=== PATIENT | male | born 1990 | race Caucasian/White ===

== ENCOUNTER 2017-09-25 10:09 | Emergency (ER) | payer OTHER ==
[~2017-09-25] VITALS: Ht 182.9 cm; Wt 68.2 kg
[2017-09-25] MEDS ORDERED: NEURONTIN300 MG/CAP (10:22)
[2017-09-25] MEDS ORDERED: TYLENOL WITH CO1 TA1 PO (10:23)
[2017-09-25] MEDS ORDERED: GOOD NEIGHBOR150 MG PO (10:23)
[2017-09-25] MEDS ORDERED: LIBRIUM 25M25 MG/CAP PO ×2 (10:23→10:24)
[2017-09-25] MEDS ORDERED: THIAMINE HCL100 M1 PO (10:23)
[2017-09-25 11:47] VITALS: BP 106/63
== END 2017-09-25 11:39 | disposition home or self-care (01) ==
LOC: ED 10:09
DX: G40.409 Other generalized epilepsy and epileptic syndromes, not intractable, without status epilepticus (principal); M25.511 Pain in right shoulder; W06.XXXA Fall from bed, initial encounter; Y92.143 Cell of prison as the place of occurrence of the external cause